=== PATIENT | male | born 1945 | race Caucasian/White ===

== ENCOUNTER 2018-01-06 00:51 | Inpatient (IN) | payer MEDICARE, OTHER ==
[~2018-01-06] VITALS: Ht 177.8 cm; Wt 83.0 kg
[2018-01-06] MEDS ORDERED: ACETAMINOPHEN 325 MG TABLET PO ONE (01:30)
[2018-01-06] MEDS ORDERED: ONDANSETRON 2MG/ML, 2ML IVPush ONE (01:30)
[2018-01-06] MEDS ORDERED: SODIUM CHLORIDE 0.9% 1,000ML IVBOLUS ONE (01:30)
[2018-01-06] MEDS ORDERED: ACETAMINOPHEN 500 MG TABLET ONE (01:42)
[2018-01-06] MEDS: PLEASE ENTER ALLERGIES MC SCH ×2 (01:55→03:10)
[2018-01-06 02:00] LABS: MEAN CORPUSCULAR HGB CONC 34.2 g/dL (33.2-36.2); MEAN CORPUSCULAR VOLUME 93.8 fL (81-97); MEAN PLATELET VOLUME 6.6 fL (7.4-10.4); PLATELET COUNT 321 x10^3/uL (130-400); RED BLOOD COUNT 4.27 x10^6/uL (4.38-5.82); RED CELL DISTRIBUTION WIDTH 13.8 % (9.4-14.8)
[2018-01-06 02:08] LABS: ANION GAP 13 mmol/L (5-15); CALCIUM 7.9 mg/dL (8.5-10.1); CHLORIDE 105 mmol/L (98-107); CREATININE 1.25 mg/dL (0.7-1.3)
[2018-01-06 02:14] LABS: D-DIMER 5.12 ug/mlFEU (0.00-0.52); INTERNATIONAL NORMALIZED RATIO 1.08 (0.93-1.1); PROTHROMBIN TIME 11.1 Seconds (9.6-11.5)
[2018-01-06 02:15] LABS: TROPONIN I 0.253 ng/mL (0.000-0.045)
[2018-01-06 02:24] LABS: BASOPHILS % (AUTO) 0 % (0-1); EOSINOPHILS # (AUTO) 0.01 x10^3/uL (0-0.4); EOSINOPHILS % (AUTO) 0 % (1-7); LYMPHOCYTES # (AUTO) 0.36 x10^3/uL (1-3.4); LYMPHOCYTES % (AUTO) 2 % (22-44); MD SCAN; MONOCYTES # (AUTO) 0.36 x10^3/uL (0.2-0.8); MONOCYTES % (AUTO) 2 % (2-9); NEUTROPHILS # (AUTO) 14.41 x10^3/uL (1.8-6.8); NEUTROPHILS % (AUTO) 95 % (42-75)
[2018-01-06] MEDS ORDERED: CEFTRIAXONE 1,000 MG in SODIUM CHLORIDE 0.9% 50 ML IVPB ONE (02:30)
[2018-01-06 02:33] LABS: CULTURE INDICATED? YES; MICROSCOPIC INDICATED
[2018-01-06] MEDS ORDERED: SODIUM CHLORIDE 0.9% 1,000 ML IV SCH ×2 (04:33→07:30)
[2018-01-06] MEDS ORDERED: ONDANSETRON 2MG/ML, 2ML IVPush PRN (05:00)
[2018-01-06] MEDS ORDERED: POLYETHYLENE GLYCOL 17 GM PACKET PO PRN (05:00)
[2018-01-06] MEDS ORDERED: DOCUSATE 100 MG CAPSULE PO PRN (05:00)
[2018-01-06] MEDS ORDERED: morphine SULFATE 10 MG/ML, 1ML IVPush PRN (05:00)
[2018-01-06] MEDS ORDERED: HYDROcodone/APAP 5/325 TABLET PO PRN (05:00)
[2018-01-06] MEDS ORDERED: ACETAMINOPHEN 325 MG TABLET PO PRN (05:00)
[2018-01-06] MEDS: ASPIRIN 325 MG TABLET EC PO SCH (06:34)
[2018-01-06 07:15] VITALS: BP 96/63
[2018-01-06] MEDS: FAMOTIDINE 20 MG TABLET PO SCH ×2 (08:47→21:00)
[2018-01-06] MEDS: SENNA/DOCUSATE TABLET PO SCH (08:48)
[2018-01-06] MEDS ORDERED: ASPI-496 PO (10:14)
[2018-01-06] MEDS ORDERED: FINA5TAB4 PO (10:14)
[2018-01-06 14:46] VITALS: BP 104/66
[2018-01-06] MEDS: ATORVASTATIN 40 MG TABLET PO SCH (21:54)
[2018-01-06 23:03] VITALS: BP 106/68
[2018-01-07 01:32] VITALS: BP 104/71
[2018-01-07] MEDS: CEFTRIAXONE PMX 1GM/50ML 50 ML IV SCH (02:27)
[2018-01-07] MEDS: ASPIRIN 325 MG TABLET EC PO SCH (05:50)
[2018-01-07 06:01] LABS: CHOL/HDL RATIO 3.3; LDL/HDL RATIO 1.9 (0.5-3.0)
[2018-01-07 08:15] VITALS: BP 119/72
[2018-01-07] MEDS: SENNA/DOCUSATE TABLET PO SCH (08:39)
[2018-01-07] MEDS: FAMOTIDINE 20 MG TABLET PO SCH ×3 (08:39→21:00)
[2018-01-07] MEDS: FINASTERIDE 5 MG TABLET PO SCH (08:39)
[2018-01-07] MEDS ORDERED: SODIUM CHLORIDE 0.9% 1,000 ML IV ONE (08:58)
[2018-01-07 13:01] VITALS: BP 110/63
[2018-01-07 20:55] VITALS: BP 117/74
[2018-01-07] MEDS: ATORVASTATIN 40 MG TABLET PO SCH (21:05)
[2018-01-07] MEDS ORDERED: PHARMACOKINETIC CONSULTATION MC ONE (22:30)
[2018-01-07] MEDS ORDERED: PHARMACOKINETIC MONITORING MC PRN (22:30)
[2018-01-07] MEDS ORDERED: VANCOMYCIN PER PHARMACY MC PRN (22:30)
[2018-01-07] MEDS: VANCOMYCIN 1,600 MG in SODIUM CHLORIDE 0.9% 250 ML IV SCH (22:48)
[2018-01-08 03:01] VITALS: BP 102/66
[2018-01-08] MEDS: CEFTRIAXONE PMX 1GM/50ML 50 ML IV SCH (03:06)
[2018-01-08] MEDS: ASPIRIN 81 MG TABLET EC PO SCH (06:34)
[2018-01-08 06:47] VITALS: BP 114/67
[2018-01-08] MEDS: SODIUM CHLORIDE 0.9% 1,000 ML IV SCH ×3 (08:00→15:58)
[2018-01-08] MEDS: FINASTERIDE 5 MG TABLET PO SCH (08:56)
[2018-01-08] MEDS: FAMOTIDINE 20 MG TABLET PO SCH ×2 (08:56→20:38)
[2018-01-08] MEDS: SENNA/DOCUSATE TABLET PO SCH (08:56)
[2018-01-08] MEDS ORDERED: MIDAZOLAM 1 MG/ML, 2ML ONE (11:47)
[2018-01-08] MEDS ORDERED: FENTANYL PF 100 MCG/2ML ONE (11:47)
[2018-01-08] MEDS ORDERED: HEPARIN 1,000 UNITS/ML, 10ML ONE (11:47)
[2018-01-08] MEDS ORDERED: VERAPAMIL 2.5 MG/ML, 2ML ONE (11:47)
[2018-01-08 13:45] VITALS: BP 115/73
[2018-01-08] MEDS ORDERED: SODIUM CHLORIDE 0.9% 1,000 ML IV SCH (13:48)
[2018-01-08 18:46] VITALS: BP 107/66
[2018-01-08] MEDS: ATORVASTATIN 40 MG TABLET PO SCH (20:38)
[2018-01-08] MEDS: VANCOMYCIN 1,600 MG in SODIUM CHLORIDE 0.9% 250 ML IV SCH ×2 (22:52→23:26)
[2018-01-09 03:42] VITALS: BP 114/75
[2018-01-09] MEDS: CEFTRIAXONE PMX 1GM/50ML 50 ML IV SCH (03:43)
[2018-01-09] MEDS: ASPIRIN 81 MG TABLET EC PO SCH (04:48)
[2018-01-09 05:51] LABS: CHLORIDE 110 mmol/L (98-107)
[2018-01-09 05:56] LABS: ALBUMIN 2.6 g/dL (3.4-5.0); ANION GAP 9 mmol/L (5-15); CALCIUM 7.9 mg/dL (8.5-10.1); CREATININE 0.94 mg/dL (0.7-1.3)
[2018-01-09 07:37] VITALS: BP 117/71
[2018-01-09] MEDS: SENNA/DOCUSATE TABLET PO SCH (08:01)
[2018-01-09] MEDS: FAMOTIDINE 20 MG TABLET PO SCH ×2 (08:01→20:13)
[2018-01-09] MEDS: FINASTERIDE 5 MG TABLET PO SCH (08:02)
[2018-01-09 08:10] LABS: BASOPHILS # (AUTO) 0.02 x10^3/uL (0-0.1); BASOPHILS % (AUTO) 1 % (0-1); EOSINOPHILS # (AUTO) 0.29 x10^3/uL (0-0.4); EOSINOPHILS % (AUTO) 6 % (1-7); LYMPHOCYTES # (AUTO) 1.09 x10^3/uL (1-3.4); LYMPHOCYTES % (AUTO) 21 % (22-44); MD NO; MEAN CORPUSCULAR HEMOGLOBIN 31.8 pg (27.5-34.5); MEAN CORPUSCULAR HGB CONC 33.5 g/dL (33.2-36.2); MEAN CORPUSCULAR VOLUME 94.8 fL (81-97); MEAN PLATELET VOLUME 6.7 fL (7.4-10.4); MONOCYTES # (AUTO) 0.94 x10^3/uL (0.2-0.8); MONOCYTES % (AUTO) 19 % (2-9); NEUTROPHILS # (AUTO) 2.73 x10^3/uL (1.8-6.8); NEUTROPHILS % (AUTO) 54 % (42-75); PLATELET COUNT 256 x10^3/uL (130-400)
[2018-01-09] MEDS: CLOPIDOGREL 75 MG TABLET PO SCH (10:14)
[2018-01-09 13:00] VITALS: BP 113/76
[2018-01-09 19:50] VITALS: BP 114/84
[2018-01-09] MEDS: ATORVASTATIN 40 MG TABLET PO SCH (20:13)
[2018-01-09] MEDS: VANCOMYCIN 1,600 MG in SODIUM CHLORIDE 0.9% 250 ML IV SCH (22:29)
[2018-01-10 02:25] VITALS: BP 123/76
[2018-01-10] MEDS: CEFTRIAXONE PMX 1GM/50ML 50 ML IV SCH (04:12)
[2018-01-10] MEDS: ASPIRIN 81 MG TABLET EC PO SCH (06:56)
[2018-01-10 07:20] VITALS: BP 131/78
[2018-01-10] MEDS: SENNA/DOCUSATE TABLET PO SCH (08:12)
[2018-01-10] MEDS: FINASTERIDE 5 MG TABLET PO SCH (09:12)
[2018-01-10] MEDS: CLOPIDOGREL 75 MG TABLET PO SCH (09:12)
[2018-01-10] MEDS: FAMOTIDINE 20 MG TABLET PO SCH (09:12)
[2018-01-10] MEDS ORDERED: CLOP75TA PO (09:40)
[2018-01-10] MEDS ORDERED: ATOR40TA78 PO (09:40)
[2018-01-10] MEDS ORDERED: CEFD300C37 PO (09:40)
== END 2018-01-10 11:50 | disposition home or self-care (01) | DRG 871 ==
LOC: ED 02:17 → SUATTDRO 04:23 → EDIP 04:33 → 5SO 05:58 → DCLOUNGE 01-10 11:36
PROVIDERS: ADMIT Family Medicine; ATTEND Internal Medicine
PROC: 4A023N7 Measurement of Cardiac Sampling and Pressure, Left Heart, Percutaneous Approach (ICD-10-PCS; principal; 2018-01-08)
PROC: B2151ZZ Fluoroscopy of Left Heart using Low Osmolar Contrast (ICD-10-PCS; 2018-01-08)
PROC: B2111ZZ Fluoroscopy of Multiple Coronary Arteries using Low Osmolar Contrast (ICD-10-PCS; 2018-01-08)
DX: A41.9 Sepsis, unspecified organism (principal); I21.4 Non-ST elevation (NSTEMI) myocardial infarction; R65.21 Severe sepsis with septic shock; N10 Acute pyelonephritis; B95.4 Other streptococcus as the cause of diseases classified elsewhere; E78.5 Hyperlipidemia, unspecified; K21.9 Gastro-esophageal reflux disease without esophagitis; N40.0 Benign prostatic hyperplasia without lower urinary tract symptoms; R31.9 Hematuria, unspecified; Z82.49 Family history of ischemic heart disease and other diseases of the circulatory system
CPT/HCPCS: 0399T; 36415; 71045; 71275; 80048; 80061; 81001; 82040; 83605; 83880; 84484; 85025; 85379; 85610; 87040; 87076; 87077; 87086; 93005; 93306; 93458; 99156; C1769; C1894; G0378; J0696; J1644; J2250; J3010; J3370; J7030; J7050; Q9967